=== PATIENT | female | born 1980 | race African-American/Black ===

== ENCOUNTER 2017-01-21 15:26 | Inpatient (IN) | payer BC ==
[~2017-01-21] VITALS: Ht 170.2 cm; Wt 95.5 kg
[2017-01-21] MEDS ORDERED: PREN-93 PO (16:40)
[2017-01-21 16:41] VITALS: Ht 170.2 cm; Wt 95.5 kg
[2017-01-21 16:43] VITALS: BP 128/75; PULSE 113; RESP 18
[2017-01-21 16:51] LABS: ADD SCAN DIFF NO
[2017-01-21 16:52] LABS: BASOPHILS % 0.1 % (0.0-2.0); EOSINOPHILS % 0.3 % (0.0-7.0); HEMATOCRIT 33.2 % (37.0-47.0); HEMOGLOBIN 11.1 g/dl (12.0-16.0); LYMPHOCYTES # 1.7 10^3/ul (0.8-2.9); LYMPHOCYTES % 24.3 % (15.0-51.0); MEAN CORPUSCULAR HEMOGLOBIN 29.1 pg (29.0-33.0); MEAN CORPUSCULAR HGB CONC 33.4 g/dl (32.0-37.0); MEAN CORPUSCULAR VOLUME 86.9 fl (82.0-101.0); MEAN PLATELET VOLUME 12.2 fl (7.4-10.4); MONOCYTE # 0.6 10^3/ul (0.3-0.9); NEUTROPHIL # 4.6 10^3/ul (1.6-7.5); NEUTROPHILS % 65.6 % (39.0-77.0); PLATELET COUNT 164 10^3/UL (140-415); RED BLOOD COUNT 3.82 10^6/ul (4.20-5.40); RED CELL DISTRIBUTION WIDTH 14.1 % (11.5-14.5)
[2017-01-21 16:57] LABS: INR 0.88; PARTIAL THROMBOPLASTIN TIME 23.6 Sec (25.0-35.0); PROTIME 11.9 Sec (12.2-14.2); PT RATIO 0.9
[2017-01-21] MEDS ORDERED: LACTATED RINGER'S 1,000 ML IV SCH (16:59)
[2017-01-21] MEDS ORDERED: OXYTOCIN 30 UNITS/LR 500 ML IV PRN ×2 (17:00)
[2017-01-21] MEDS ORDERED: CEFAZOLIN 2 GM/50 ML (PMX) 50 ML IV SCH (17:00)
[2017-01-21] MEDS ORDERED: METHYLERGONOVINE 0.2 MG INJ IM PRN ×2 (17:00)
[2017-01-21] MEDS ORDERED: OXYTOCIN 30 UNITS/LR 500 ML IV SCH (17:00)
[2017-01-21] MEDS ORDERED: CARBOPROST 250 MCG INJ IM PRN ×2 (17:00)
[2017-01-21] MEDS ORDERED: MISOPROSTOL 200 MCG TAB PR PRN ×2 (17:00)
[2017-01-21] MEDS ORDERED: morphine SULFATE/PF (10 MG/10 ML) INJ ONE (20:15)
[2017-01-21] MEDS ORDERED: ONDANSETRON 4 MG INJ ONE (20:15)
[2017-01-21] MEDS ORDERED: OXYTOCIN 10 UNIT INJ ONE ×2 (20:15→21:33)
[2017-01-21] MEDS ORDERED: PHENYLephrine (100 MCG/ML) 5ML SYG ONE ×2 (20:15→21:04)
--- NOTE | 2017-01-21 21:37 | PREOPHP ---
DATE OF ADMISSION: 01/21/2017 HISTORY OF PRESENT ILLNESS: A 36-year-old female, 3, para 2, estimated date of delivery 09/2016, at 39 weeks' gestation is admitted for repeat section. PAST MEDICAL HISTORY: Unremarkable. PAST SURGICAL HISTORY: section. ALLERGIES: NO KNOWN ALLERGIES. FAMILY HISTORY: Noncontributory. PHYSICAL EXAMINATION: VITAL SIGNS: The patient is afebrile. Vital signs stable. HEAD, NECK, AND CHEST: Within normal limits. ABDOMEN: Soft, nontender, and gravid. EXTREMITIES: Within normal limits. NEUROLOGIC: Within normal limits. IMPRESSION: at 39 weeks with previous section. The patient does not desire tria l of labor after . PLAN: Delivery by repeat section. Risks, benefits, and alternatives of the procedure were explained to the patient. The patient said she understood and gave informed consent for the proced ure. Dictated By: JACQUELIN CASTILLO/DHARMESH Conf#: [id number] DID#: [id number]
[2017-01-21] MEDS ORDERED: KETOROLAC 30 MG INJ IV PRN (22:30)
[2017-01-21] MEDS ORDERED: NALOXONE (0.4 MG/ML) INJ IV PRN (22:30)
[2017-01-21] MEDS ORDERED: morphine 2 MG INJ IV PRN (22:30)
[2017-01-21] MEDS ORDERED: ONDANSETRON 4 MG INJ IV PRN (22:30)
[2017-01-22] VITALS (7 sets, daily range): BP systolic 112–120; BP diastolic 55–72; PULSE 72–89; RESP 18–20
[2017-01-22] MEDS: OXYTOCIN 30 UNITS/LR 500 ML IV SCH ×2 (00:31→02:00)
[2017-01-22] MEDS: LACTATED RINGER'S 1,000 ML IV SCH ×3 (00:31→14:09)
[2017-01-22] MEDS ORDERED: OXYTOCIN 30 UNITS/LR 500 ML IV PRN (01:00)
[2017-01-22] MEDS ORDERED: MISOPROSTOL 200 MCG TAB PR PRN (01:00)
[2017-01-22] MEDS ORDERED: CARBOPROST 250 MCG INJ IM PRN (01:00)
[2017-01-22] MEDS ORDERED: LANOLIN 7 GM TUBE TOP PRN (01:00)
[2017-01-22] MEDS ORDERED: OXYCODONE/ACETAMINOPHEN (5/325) TAB PO PRN ×2 (01:00)
[2017-01-22] MEDS ORDERED: METHYLERGONOVINE 0.2 MG INJ IM PRN (01:00)
[2017-01-22] MEDS: DIPHENHYDRAMINE 50 MG INJ IV PRN ×2 (01:10→15:41)
[2017-01-22] MEDS: IBUPROFEN 800 MG TAB PO SCH ×3 (06:00→22:00)
[2017-01-22 07:45] LABS: ADD SCAN DIFF NO
[2017-01-22 07:54] LABS: BASOPHILS % 0.2 % (0.0-2.0); EOSINOPHILS % 0.1 % (0.0-7.0); HEMATOCRIT 30.6 % (37.0-47.0); HEMOGLOBIN 10.1 g/dl (12.0-16.0); LYMPHOCYTES # 1.3 10^3/ul (0.8-2.9); LYMPHOCYTES % 14.1 % (15.0-51.0); MEAN CORPUSCULAR HEMOGLOBIN 28.4 pg (29.0-33.0); MEAN PLATELET VOLUME 12.4 fl (7.4-10.4); MONOCYTE # 0.8 10^3/ul (0.3-0.9); MONOCYTES % 8.3 % (0.0-11.0); NEUTROPHILS % 76.9 % (39.0-77.0); PLATELET COUNT 158 10^3/UL (140-415); RED BLOOD COUNT 3.56 10^6/ul (4.20-5.40); RED CELL DISTRIBUTION WIDTH 13.8 % (11.5-14.5); WHITE BLOOD COUNT 9.2 10^3/ul (4.8-10.8)
[2017-01-22] MEDS: SENNA/DOCUSATE NA (8.6MG/50MG) TAB PO SCH ×2 (09:41→20:53)
--- NOTE | 2017-01-22 12:18 | QN ---
Documentation Comment No complaint Afebrile VSS Abdomen soft ND POD #1 Stable Ambulate Advance diet. JACQUELIN BURROWS MD Jan 22, 2017 12:17
[2017-01-22] MEDS ORDERED: IBUPROFEN 800 MG TAB PO SCH (22:00)
[2017-01-23] MEDS: LACTATED RINGER'S 1,000 ML IV SCH ×3 (00:31→16:31)
[2017-01-23 04:35] VITALS: BP 116/68; PULSE 78; RESP 18
[2017-01-23] MEDS: IBUPROFEN 800 MG TAB PO SCH ×3 (05:47→21:26)
[2017-01-23 07:50] VITALS: BP 121/74; PULSE 82; RESP 20
[2017-01-23] MEDS: SENNA/DOCUSATE NA (8.6MG/50MG) TAB PO SCH ×2 (09:24→20:33)
[2017-01-23 16:21] VITALS: BP 134/81; PULSE 88; RESP 18
[2017-01-23 19:35] VITALS: BP 125/72; PULSE 85; RESP 20
--- NOTE | 2017-01-23 21:28 | QN ---
Documentation Comment No complaint Afebrile VSS Abdomen soft ND Stable Continue with present care. JACQUELIN BURROWS MD Jan 23, 2017 21:28
--- NOTE | 2017-01-23 22:00 | OPR ---
Date/Time of Note Date/Time of Note DATE: 01/23/17 TIME: 21:55 Operative Report Free Text/Dictation Date of Operation January 21, 2017 Preoperative Diagnosis Term with Previous Postoperative Diagnosis Same Operation/Procedure Performed Repeat Low Transverse Anesthesia: spinal, epidural Estimated Blood Loss: other (600 ml) Complications: None JACQUELIN BURROWS MD Jan 23, 2017 22:00
[2017-01-24 03:50] VITALS: BP 117/70; PULSE 98; RESP 18
[2017-01-24] MEDS: IBUPROFEN 800 MG TAB PO SCH ×2 (05:34→13:21)
[2017-01-24 08:00] VITALS: BP 134/78; PULSE 77; RESP 20
[2017-01-24] MEDS ORDERED: DIPHTH/TET/ACEL PERTUSS (ADULT) 0.5 ML VIAL IM* ONE (09:00)
[2017-01-24] MEDS: SENNA/DOCUSATE NA (8.6MG/50MG) TAB PO SCH (09:29)
--- NOTE | 2017-01-24 13:08 | DS ---
Date/Time of Note Date/Time of Note DATE: 01/24/17 TIME: 13:07 Obstetrical Discharge Record Final Diagnosis Final Diagnosis: Term delivered Section Section: Repeat Condition on Discharge Physical Assessment Voiding: Yes Bowel Movement: Yes Breast: Soft, non-tender Fundus: Firm Abdomen and Incision: Abdomen Soft Incision clean and intact Calf Tenderness: No Patient Condition: Stable JACQUELIN BURROWS MD Jan 24, 2017 13:08
[2017-01-24 16:00] VITALS: BP 121/86; PULSE 77; RESP 20
== END 2017-01-24 18:54 | disposition home or self-care (01) | DRG 766 ==
LOC: L-D 15:26 → PP1 01-22 00:17
PROVIDERS: ADMIT Obstetrics & Gynecology; ATTEND Obstetrics & Gynecology
PROC: 10D00Z1 Extraction of Products of Conception, Low, Open Approach (ICD-10-PCS; principal; 2017-01-21 17:00)
DX: O34.211 Maternal care for low transverse scar from previous cesarean delivery (principal); E66.9 Obesity, unspecified; O99.214 Obesity complicating childbirth; Z3A.39 39 weeks gestation of pregnancy; Z37.0 Single live birth; Z68.33 Body mass index [BMI] 33.0-33.9, adult
CPT/HCPCS: 85025; 85610; 85730; 86592; 86850; 86900; 86901; 90715; 94760; 99464; J0690; J1200; J1885; J2274; J2370; J2405; J2590; J7120

== ENCOUNTER 2019-01-10 16:19 | Outpatient (CLI) | payer BC ==
[~2019-01-10] VITALS: Ht 170.2 cm; Wt 98.5 kg
[~2019-01-10 16:19] MED LIST: PREN-93 PO
[2019-01-10 16:43] VITALS: Ht 170.2 cm; Wt 98.5 kg
[2019-01-10 16:46] VITALS: BP 112/68; PULSE 114; RESP 18
--- NOTE | 2019-01-10 19:40 | TRIAGE ---
OB Triage Datetime Report Generated by CPN: 01/10/2019 19:40 Datetime: 01/10/2019 19:02 Labor Evaluation Frequency: X1 Monitor Mode: External Duration (sec)2399: 80 Pattern: Normal: <= 5 Contractions in 10 Minutes Resting Tone [place]: Relaxed Heart Rate FHR Baseline Rate: 135 Monitor Mode: External US Variability: Moderate 6-25 bpm Accelerations: 15X15 Decelerations: None Category: Category I Comments: STRIP REVIEWED FROM [id number] Datetime: 01/10/2019 17:39 Headache: Denies Labor Evaluation Frequency: IRREG Monitor Mode: External Quality: Mild Pattern: Normal: <= 5 Contractions in 10 Minutes Resting Tone [place]: Relaxed Heart Rate FHR Baseline Rate: 135 Monitor Mode: External US FHR Baseline Changes: No Baseline Change Variability: Moderate 6-25 bpm Accelerations: 15X15 Decelerations: None Category: Category I Pain Assessment Pain Scale: 0 Pain Presence: None/Denies Pain Type: N/A Pain Location: Abdomen Pain Goal: 0 Datetime: 01/10/2019 17:10 Maternal Assessment Level of Consciousness: Keenly Alert, Responsive DTR's/Clonus: DTRs 2+ Headache: Denies Blurred Vision: No Nausea/Vomiting: Denies RUQ Epigastric Pain: Denies Facial Edema: None Labor Evaluation Frequency: irreg Monitor Mode: External Duration (sec)2399: 60-50 Quality: Mild Pattern: Normal: <= 5 Contractions in 10 Minutes Resting Tone [place]: Relaxed Heart Rate FHR Baseline Rate: 135 Monitor Mode: External US FHR Baseline Changes: No Baseline Change Variability: Moderate 6-25 bpm Accelerations: 15X15 Decelerations: None Category: Category I Pain Assessment Pain Scale: 0 Pain Presence: Intermittent Pain Type: Cramping Pain Location: Abdomen Pain Goal: 0 Vaginal Exam Membrane Status: Intact Datetime: 01/10/2019 16:35 Time of Arrival: 01/10/2019 16:10 EGA: 36.1 Arrived By: Ambulatory Arrived From: Home Chief Complaint: vag bleeding at 0900 and 1200 Movement: Present Contractions: Irregular Patient Complaints: Other Time Provider Notified: 01/10/2019 16:50 Provider Notified: delshad Initial Plan: efm,call dr adeline Datetime: 01/10/2019 16:34 Maternal Assessment Level of Consciousness: Keenly Alert, Responsive DTR's/Clonus: DTRs 2+ Headache: Denies Blurred Vision: No Nausea/Vomiting: Denies RUQ Epigastric Pain: Denies Facial Edema: None Monitor Mode: External Quality: Mild Pattern: Normal: <= 5 Contractions in 10 Minutes Resting Tone [place]: Relaxed Heart Rate FHR Baseline Rate: 140 Monitor Mode: External US FHR Baseline Changes: No Baseline Change Variability: Moderate 6-25 bpm Accelerations: 15X15 Decelerations: None Category: Category I Pain Assessment Pain Scale: 0 Pain Presence: None/Denies Pain Type: N/A Pain Location: Abdomen Pain Goal: 0 Vaginal Exam Membrane Status: Intact Datetime: 01/10/2019 16:22 Maternal Assessment Level of Consciousness: Keenly Alert, Responsive DTR's/Clonus: DTRs 2+; No Clonus Headache: Denies Blurred Vision: No Respiratory Effort: Unlabored; Regular Rhythm; Equal Expansion Breath Sounds, Left: Clear and Equal Breath Sounds, Right: Clear and Equal Nausea/Vomiting: Denies RUQ Epigastric Pain: Denies Facial Edema: None Temperature Route: Axillary Fall Risk Assessment History of Falling: (0) No Secondary Diagnosis: (0) No Ambulatory Aid: (0) Bedrest/Nurse Assist IV Therapy: (0) No Gait: (0) Normal/Bedrest/Immobile Mental Status: (0) Oriented to Own Ability Fall Score: 0 Fall Risk Score Definition: No Risk: No action required
--- NOTE | 2019-01-11 16:19 | PN ---
Triage Information Date/Time Reason for visit: Vag spotting / bleeding Weeks of Gestation 36 weeks /Para Diabetes: none Hypertention: none Objective Vital Signs Date Temp Pulse Resp B/P (MAP) Pulse Ox O2 O2 Flow FiO2 Time Delivery Rate 01/10/19 97.7 114 18 112/68 Room Air 16:46 (83) Heart Rate: 120's Heart Rate Comments Reactive Contractions: None Results/Medications Result Diagram: 01/10/19 1726 Results 24 hrs Laboratory Tests Test 01/10/19 17:00 01/10/19 17:26 Urine Color STRAW Urine Clarity CLEAR Urine pH 6.0 Urine Specific [place] 1.006 Urine Ketones NEGATIVE Urine Nitrite NEGATIVE Urine Bilirubin NEGATIVE Urine Urobilinogen NEGATIVE Urine Leukocyte Esterase NEGATIVE Urine Hemoglobin NEGATIVE Urine Glucose NEGATIVE Urine Total Protein NEGATIVE White Blood Count 7.1 # Red Blood Count 3.58 L Hemoglobin 10.0 L Hematocrit 30.9 L Mean Corpuscular Volume 86.3 Mean Corpuscular Hemoglobin 27.9 L Mean Corpuscular Hemoglobin Concent 32.4 Red Cell Distribution Width 13.7 Platelet Count 157 Mean Platelet Volume 12.3 H Immature Granulocytes % 0.600 H Neutrophils % 66.6 Lymphocytes % 22.0 Monocytes % 10.1 Eosinophils % 0.4 Basophils % 0.3 Nucleated Red Blood Cells % 0.0 Immature Granulocytes # 0.040 H Neutrophils # 4.7 Lymphocytes # 1.6 Monocytes # 0.7 Eosinophils # 0.0 Basophils # 0.0 Nucleated Red Blood Cells # 0.0 Imaging Results OB ultrasound placenta normal Disposition: Discharge Assessment/Plan Follow up ion clinic on 01/15/2019 JACQUELIN BURROWS MD Jan 11, 2019 16:19
== END 2019-01-10 19:35 | disposition home or self-care (01) ==
LOC: OBT 16:19 → L-D 16:19 → OBT 19:35
PROVIDERS: ATTEND Obstetrics & Gynecology
DX: O26.853 Spotting complicating pregnancy, third trimester (principal); O09.523 Supervision of elderly multigravida, third trimester; Z3A.36 36 weeks gestation of pregnancy
CPT/HCPCS: 76815; 76818; 81003; 85025; 86850; 86870; 86900; 86901; Z7500; G0463

== ENCOUNTER 2019-01-15 16:15 | Outpatient (CLI) | payer BC ==
[~2019-01-15] VITALS: Ht 170.2 cm; Wt 99.2 kg
[2019-01-15 17:02] VITALS: Ht 170.2 cm; Wt 99.2 kg
[2019-01-15 17:03] VITALS: BP 124/71; PULSE 100; RESP 18
--- NOTE | 2019-01-15 20:08 | PN ---
Triage Information Date/Time Reason for visit: h/o marginal cord insertion Weeks of Gestation 37 weeks /Para Diabetes: none Hypertention: none Objective Vital Signs Date Temp Pulse Resp B/P (MAP) Pulse Ox O2 O2 Flow FiO2 Time Delivery Rate 01/15/19 97.9 100 18 124/71 Room Air 17:03 (88) Heart Rate: 120's Heart Rate Comments Reactive Results/Medications Imaging Results BP 03/05 Disposition: Discharge JACQUELIN BURROWS MD Jan 15, 2019 20:08
--- NOTE | 2019-01-15 20:32 | TRIAGE ---
OB Triage Datetime Report Generated by CPN: 01/15/2019 20:32 Datetime: 01/15/2019 19:21 Pain Assessment Pain Scale: 0 Pain Presence: None/Denies Pain Type: N/A Datetime: 01/15/2019 19:14 Monitor Mode: External Monitor Mode: External US Datetime: 01/15/2019 19:00 Labor Evaluation Frequency: X5 Monitor Mode: External Duration (sec)2399: 50-100 Quality: Mild Pattern: Normal: <= 5 Contractions in 10 Minutes Resting Tone [place]: Relaxed Heart Rate FHR Baseline Rate: 140 Monitor Mode: External US Variability: Moderate 6-25 bpm Accelerations: 15X15 Decelerations: None Category: Category I Datetime: 01/15/2019 18:00 Labor Evaluation Frequency: x4 Monitor Mode: External Duration (sec)2399: 40-100 Quality: Mild Pattern: Normal: <= 5 Contractions in 10 Minutes Resting Tone [place]: Relaxed Heart Rate FHR Baseline Rate: 140 Monitor Mode: External US Variability: Moderate 6-25 bpm Accelerations: 15X15 Decelerations: None Category: Category I Pain Assessment Pain Scale: 0 Pain Presence: None/Denies Pain Type: N/A Datetime: 01/15/2019 17:05 Comments: u/s tech at bedside Datetime: 01/15/2019 16:59 Assessment Type: Triage Maternal Assessment Level of Consciousness: Keenly Alert, Responsive DTR's/Clonus: DTRs 2+; No Clonus Headache: Denies Blurred Vision: No Respiratory Effort: Unlabored; Regular Rhythm; Equal Expansion Breath Sounds, Left: Clear and Equal Breath Sounds, Right: Clear and Equal Nausea/Vomiting: Denies RUQ Epigastric Pain: Denies Lower Extremities Edema: None Degree: None Upper Extremities Edema: None Degree: None Facial Edema: None Fall Risk Assessment History of Falling: (0) No Secondary Diagnosis: (0) No Ambulatory Aid: (0) Bedrest/Nurse Assist IV Therapy: (0) No Gait: (0) Normal/Bedrest/Immobile Mental Status: (0) Oriented to Own Ability Fall Score: 0 Fall Risk Score Definition: No Risk: No action required Datetime: 01/15/2019 16:58 Time of Arrival: 01/15/2019 16:13 EGA: 36.6 Arrived By: Ambulatory Arrived From: Dr. Raza Chief Complaint: sent in from clinic for bpp, marginal cord insertion Movement: Present Contractions: Denies/Absent Rupture of Membranes: Denies Vaginal Bleeding: None Vaginal Discharge: Denies Recent Sexual Intercouse: Denies Abdominal Trauma: Not Applicable Patient Complaints: None Time Provider Notified: 01/15/2019 18:20 Provider Notified: DELSHAD Initial Plan: bpp/nst as ordered Datetime: 01/15/2019 16:57 Pain Assessment Pain Scale: 0 Pain Presence: None/Denies Pain Type: N/A Datetime: 01/10/2019 16:35 EGA: 36.1 Datetime: 01/10/2019 16:22 Fall Score: 0 Fall Risk Score Definition: No Risk: No action required
--- NOTE | 2019-01-16 05:01 | TRIAGE ---
OB Triage Datetime Report Generated by CPN: 01/16/2019 05:01 Datetime: 01/15/2019 20:00 Frequency: IRREGULAR Monitor Mode: External Duration (sec)2399: 90-140 Quality: Mild Pattern: Normal: <= 5 Contractions in 10 Minutes Resting Tone [place]: Relaxed FHR Baseline Rate: 150 Monitor Mode: External US Variability: Minimal - Undetectable to <=5 bpm Accelerations: None Decelerations: None Category: Category I Datetime: 01/15/2019 16:59 Fall Score: 0 Fall Risk Score Definition: No Risk: No action required Datetime: 01/15/2019 16:58 EGA: 37.0 Datetime: 01/10/2019 16:35 EGA: 36.2 Datetime: 01/10/2019 16:22 Fall Score: 0 Fall Risk Score Definition: No Risk: No action required
== END 2019-01-15 20:21 | disposition home or self-care (01) ==
LOC: OBT 16:15 → L-D 16:16 → OBT 20:21
PROVIDERS: ATTEND Obstetrics & Gynecology
DX: O43.123 Velamentous insertion of umbilical cord, third trimester (principal); O09.523 Supervision of elderly multigravida, third trimester; Z3A.37 37 weeks gestation of pregnancy
CPT/HCPCS: 76818; Z7500; G0463

== ENCOUNTER 2019-01-19 18:59 | Outpatient (CLI) | payer BC ==
[~2019-01-19] VITALS: Ht 170.2 cm; Wt 99.5 kg
[2019-01-19 19:41] VITALS: BP 121/78; PULSE 108; RESP 18
[2019-01-19] MEDS ORDERED: FERR134T PO (19:46)
--- NOTE | 2019-01-19 19:54 | PN ---
Triage Information Date/Time Reason for visit: marginal insertion of cord Weeks of Gestation 37 weeks /Para Diabetes: none Hypertention: none Objective Vital Signs Date Temp Pulse Resp B/P (MAP) Pulse Ox O2 O2 Flow FiO2 Time Delivery Rate 01/19/19 98.7 108 18 121/78 Room Air 19:41 (92) Heart Rate: 120's Heart Rate Comments Reactive Contractions: None Assessment/Plan Will do BPP Consider d/c home if BPP normal JACQUELIN BURROWS MD Jan 19, 2019 19:54
--- NOTE | 2019-01-20 02:51 | TRIAGE ---
OB Triage Datetime Report Generated by CPN: 01/20/2019 02:51 Datetime: 01/19/2019 19:40 Time of Arrival: 01/19/2019 18:53 EGA: 37.4 Arrived By: Ambulatory Arrived From: Home Chief Complaint: w/ orders for follow up NST/BPP d/t marginal cord insertion Movement: Present Contractions: Denies/Absent Rupture of Membranes: Denies Vaginal Bleeding: None Vaginal Discharge: Denies Recent Sexual Intercouse: Denies Abdominal Trauma: Not Applicable Patient Complaints: None Time Provider Notified: 01/19/2019 19:30 Provider Notified: Dr Camacho Initial Plan: NST/BPP Datetime: 01/15/2019 16:59 Fall Risk Assessment Fall Score: 0 Fall Risk Score Definition: No Risk: No action required Datetime: 01/15/2019 16:58 EGA: 37.0 Datetime: 01/10/2019 16:35 EGA: 36.2 Datetime: 01/10/2019 16:22 Fall Risk Assessment Fall Score: 0 Fall Risk Score Definition: No Risk: No action required
== END 2019-01-19 21:40 | disposition home or self-care (01) ==
LOC: OBT 18:59 → L-D 19:00 → OBT 21:40
PROVIDERS: ATTEND Obstetrics & Gynecology
DX: O43.123 Velamentous insertion of umbilical cord, third trimester (principal); Z3A.37 37 weeks gestation of pregnancy
CPT/HCPCS: 76818; Z7500; G0463

== ENCOUNTER 2019-01-22 19:41 | Outpatient (CLI) | payer BC ==
[~2019-01-22] VITALS: Ht 170.2 cm; Wt 99.9 kg
[~2019-01-22 19:41] MED LIST changes: +FERR134T PO
[2019-01-22 20:17] VITALS: BP 127/75; PULSE 90; RESP 18; Ht 170.2 cm; Wt 99.9 kg
--- NOTE | 2019-01-22 22:48 | PN ---
Triage Information Date/Time Reason for visit: Patient with marginal cord insertion here for NST and BPP Weeks of Gestation Patient is a 38-year-old 4 para 3 at 38 weeks of gestation with estimated delivery February 05, 2019 Patient with marginal cord insertion here for NST and BPP Patient reports positive movement, denies vaginal bleeding and leaking fluid, denies uterine contractions Past obstetrical history significant for prior x2 /Para 4 para 3 Diabetes: none Hypertention: none Objective Vital Signs Date Temp Pulse Resp B/P (MAP) Pulse Ox O2 O2 Flow FiO2 Time Delivery Rate 01/22/19 98.6 90 18 127/75 Room Air 20:17 (92) Heart Rate: 140's Heart Rate Comments heart rate tracing category 1 Contractions: None Results/Medications Imaging Results PROCEDURE: OB ultrasound for biophysical profile. CLINICAL INDICATION: Contractions. TECHNIQUE: Multiple sonographic images of the pelvis were obtained using transabdominal approach. COMPARISON: Biophysical profile dated 01/19/2019. FINDINGS: breathing movement = 2/2 tone = 2/2 motion = 2/2 RAYMOND = 9.9 cm Single living intrauterine gestation with heart rate of 150 beats per minute. Anterior grade 1 placenta. Cephalic presentation. IMPRESSION: 1. Single living intrauterine gestation with cephalic presentation. 2. Biophysical profile = 8/8. 3. RAYMOND = 9.9 cm, previously 15.4 cm. RPTAT:HAJM Physician Xochilt Date Time Electronically viewed and signed by Brigitte Schmid Physician on 01/22/2019 21:23 RM/ CC: JACQUELIN BURROWS MD [phone] Disposition: Discharge Assessment/Plan kick count instructions were given Labor precautions were given Patient instructed to follow-up with [facility] in 1 to 2 days Patient instructed to return in 48 hours for repeat NST and BPP Patient will be scheduled for repeat by ROSA ISELA Sam MD Jan 22, 2019 22:48
--- NOTE | 2019-01-22 22:59 | TRIAGE ---
OB Triage Datetime Report Generated by CPN: 01/22/2019 22:59 Datetime: 01/22/2019 21:40 Stage of : OB Triage Datetime: 01/22/2019 20:45 Stage of : OB Triage Datetime: 01/22/2019 20:40 Stage of : OB Triage Datetime: 01/22/2019 20:30 Stage of : OB Triage Labor Evaluation Frequency: 6-10 Monitor Mode: External Duration (sec)2399: 40-60 Pattern: Normal: <= 5 Contractions in 10 Minutes Resting Tone [place]: Relaxed Contraction Comments: Patient denies feeling contractions. Heart Rate FHR Baseline Rate: 140 Monitor Mode: External US Variability: Moderate 6-25 bpm Accelerations: 15X15 Decelerations: None Category: Category I Pain Assessment Pain Scale: 0 Pain Presence: None/Denies Pain Type: N/A Pain Relief Measures: Comfort Measures Datetime: 01/22/2019 20:11 Stage of : OB Triage Assessment Type: Triage Maternal Assessment Level of Consciousness: Keenly Alert, Responsive DTR's/Clonus: DTRs 2+; No Clonus Headache: Denies Blurred Vision: No Respiratory Effort: Unlabored; Regular Rhythm; Equal Expansion Breath Sounds, Left: Clear and Equal Breath Sounds, Right: Clear and Equal Nausea/Vomiting: Denies RUQ Epigastric Pain: Denies Lower Extremities Edema: None Degree: None Upper Extremities Edema: None Degree: None Facial Edema: None Temperature Route: Oral Fall Risk Assessment History of Falling: (0) No Secondary Diagnosis: (0) No Ambulatory Aid: (0) Bedrest/Nurse Assist IV Therapy: (0) No Gait: (0) Normal/Bedrest/Immobile Mental Status: (0) Oriented to Own Ability Fall Score: 0 Fall Risk Score Definition: No Risk: No action required Monitor Mode: External Monitor Mode: External US Pain Assessment Pain Scale: 0 Pain Presence: None/Denies Pain Type: N/A Datetime: 01/22/2019 20:10 Time of Arrival: 01/22/2019 19:33 EGA: 38.0 Arrived By: Ambulatory Arrived From: Office Chief Complaint: NST/BPP Movement: Present Contractions: Denies/Absent Rupture of Membranes: Denies Vaginal Discharge: Denies Recent Sexual Intercouse: Denies Abdominal Trauma: Not Applicable Patient Complaints: None Time Provider Notified: 01/22/2019 20:40 Provider Notified: Delshad Initial Plan: NST/BPP Datetime: 01/19/2019 21:22 Stage of : OB Triage Datetime: 01/19/2019 21:03 Heart Rate FHR Baseline Rate: 140 Monitor Mode: External US FHR Baseline Changes: No Baseline Change Variability: Moderate 6-25 bpm Accelerations: 15X15 Decelerations: None Category: Category I Datetime: 01/19/2019 20:52 Stage of : OB Triage Monitor Mode: External Quality: Mild Pattern: Normal: <= 5 Contractions in 10 Minutes Resting Tone [place]: Relaxed Heart Rate FHR Baseline Rate: 145 Monitor Mode: External US FHR Baseline Changes: No Baseline Change Variability: Moderate 6-25 bpm Accelerations: 15X15 Decelerations: None Category: Category I Datetime: 01/19/2019 20:18 Monitor Mode: External US Datetime: 01/19/2019 19:40 EGA: 37.4 Datetime: 01/19/2019 19:30 Stage of : OB Triage Datetime: 01/19/2019 19:24 Stage of : OB Triage Maternal Assessment Level of Consciousness: Keenly Alert, Responsive Headache: Denies Blurred Vision: No Respiratory Effort: Unlabored Nausea/Vomiting: Denies RUQ Epigastric Pain: Denies Facial Edema: None Monitor Mode: External Resting Tone [place]: Relaxed Heart Rate FHR Baseline Rate: 150 Monitor Mode: External US Pain Assessment Pain Scale: 0 Pain Presence: None/Denies Pain Type: N/A Datetime: 01/15/2019 16:59 Fall Score: 0 Fall Risk Score Definition: No Risk: No action required Datetime: 01/15/2019 16:58 EGA: 37.0 Datetime: 01/10/2019 16:35 EGA: 36.2 Datetime: 01/10/2019 16:22 Fall Score: 0 Fall Risk Score Definition: No Risk: No action required
== END 2019-01-22 21:50 | disposition home or self-care (01) ==
LOC: OBT 19:41 → L-D 19:42 → OBT 21:50
PROVIDERS: ATTEND Obstetrics & Gynecology
DX: O43.123 Velamentous insertion of umbilical cord, third trimester (principal); Z3A.38 38 weeks gestation of pregnancy
CPT/HCPCS: 76818; Z7500; G0463

== ENCOUNTER 2019-01-26 19:30 | Outpatient (CLI) | payer BC ==
[~2019-01-26] VITALS: Ht 170.2 cm; Wt 100.6 kg
[2019-01-26 19:51] VITALS: Ht 170.2 cm; Wt 100.6 kg
--- NOTE | 2019-01-26 20:02 | PN ---
Triage Information Date/Time Reason for visit: Marginal insertion of cord Weeks of Gestation 38 weeks /Para Diabetes: none Hypertention: none Objective Heart Rate: 120's Heart Rate Comments Reactive Contractions: None Disposition: Discharge Assessment/Plan BPP to be done D/C home if BPP normal JACQUELIN BURROWS MD Jan 26, 2019 20:02
--- NOTE | 2019-01-26 22:26 | TRIAGE ---
OB Triage Datetime Report Generated by CPN: 01/26/2019 22:26 Datetime: 01/26/2019 21:16 Stage of : OB Triage Labor Evaluation Frequency: X2/HR Monitor Mode: External Duration (sec)2399: 30-40 Quality: Mild Pattern: Normal: <= 5 Contractions in 10 Minutes Resting Tone [place]: Relaxed Heart Rate FHR Baseline Rate: 145 Monitor Mode: External US Variability: Moderate 6-25 bpm Accelerations: 15X15 Decelerations: None Pain Assessment Pain Presence: None/Denies Datetime: 01/26/2019 20:15 Stage of : OB Triage Temperature Route: Oral Labor Evaluation Frequency: X2/30 MIN Monitor Mode: External Duration (sec)2399: 30-40 Quality: Mild Pattern: Normal: <= 5 Contractions in 10 Minutes Resting Tone [place]: Relaxed Heart Rate FHR Baseline Rate: 150 Monitor Mode: External US Variability: Moderate 6-25 bpm Accelerations: 10X10 Decelerations: None Pain Assessment Pain Presence: None/Denies Datetime: 01/26/2019 19:53 Time of Arrival: 01/26/2019 19:28 EGA: 38.4 Chief Complaint: NST/BPP Movement: Present Contractions: Denies/Absent Rupture of Membranes: Denies Vaginal Discharge: Denies Time Provider Notified: 01/26/2019 19:42 Provider Notified: DELSHAD Initial Plan: NST/BPP Datetime: 01/26/2019 19:47 Assessment Type: Triage Maternal Assessment Level of Consciousness: Keenly Alert, Responsive DTR's/Clonus: DTRs 2+; No Clonus Headache: Denies Blurred Vision: No Respiratory Effort: Unlabored; Regular Rhythm; Equal Expansion Breath Sounds, Left: Clear and Equal Breath Sounds, Right: Clear and Equal Nausea/Vomiting: Denies RUQ Epigastric Pain: Denies Lower Extremities Edema: None Upper Extremities Edema: None Facial Edema: None Fall Risk Assessment History of Falling: (0) No Secondary Diagnosis: (0) No Ambulatory Aid: (0) Bedrest/Nurse Assist IV Therapy: (0) No Gait: (0) Normal/Bedrest/Immobile Mental Status: (0) Oriented to Own Ability Fall Score: 0 Fall Risk Score Definition: No Risk: No action required Datetime: 01/22/2019 20:11 Fall Score: 0 Fall Risk Score Definition: No Risk: No action required Datetime: 01/22/2019 20:10 EGA: 38.0 Datetime: 01/19/2019 19:40 EGA: 37.4 Datetime: 01/15/2019 16:59 Fall Score: 0 Fall Risk Score Definition: No Risk: No action required Datetime: 01/15/2019 16:58 EGA: 37.0 Datetime: 01/10/2019 16:35 EGA: 36.2 Datetime: 01/10/2019 16:22 Fall Score: 0 Fall Risk Score Definition: No Risk: No action required
== END 2019-01-26 21:12 | disposition home or self-care (01) ==
LOC: L-D 19:30 → OBT 19:30
PROVIDERS: ATTEND Obstetrics & Gynecology
DX: O43.123 Velamentous insertion of umbilical cord, third trimester (principal); O09.523 Supervision of elderly multigravida, third trimester; Z3A.38 38 weeks gestation of pregnancy
CPT/HCPCS: 76818; Z7500; G0463

== ENCOUNTER 2019-01-29 02:30 | Inpatient (IN) | payer BC ==
[~2019-01-29] VITALS: Ht 170.2 cm; Wt 99.6 kg
[2019-01-29 02:30] VITALS: Ht 170.2 cm; Wt 99.6 kg
[2019-01-29 02:52] VITALS: BP 127/85; PULSE 85; RESP 18
[2019-01-29] MEDS: LACTATED RINGER'S 1,000 ML IV SCH ×2 (03:10→04:25)
[2019-01-29] MEDS ORDERED: OXYTOCIN 30 UNITS/LR 500 ML IV PRN ×2 (04:00→17:00)
[2019-01-29] MEDS ORDERED: OXYTOCIN 30 UNITS/LR 500 ML IV SCH ×2 (04:00→16:34)
[2019-01-29] MEDS ORDERED: METHYLERGONOVINE 0.2 MG INJ IM PRN ×2 (04:00→17:00)
[2019-01-29] MEDS ORDERED: CEFAZOLIN 2 GM/50 ML (PMX) 50 ML IVPB SCH (04:00)
[2019-01-29] MEDS ORDERED: MISOPROSTOL 200 MCG TAB PR PRN ×2 (04:00→17:00)
[2019-01-29] MEDS ORDERED: ACETAMINOPHEN 325 MG TAB PO ONE (04:00)
[2019-01-29] MEDS ORDERED: CARBOPROST 250 MCG INJ IM PRN ×2 (04:00→17:00)
--- NOTE | 2019-01-29 04:04 | TRIAGE ---
OB Triage Datetime Report Generated by CPN: 01/29/2019 04:04 Datetime: 01/29/2019 03:30 Labor Evaluation Frequency: 2-9 Monitor Mode: External Duration (sec)2399: 50-90 Quality: Mild Pattern: Normal: <= 5 Contractions in 10 Minutes Resting Tone [place]: Relaxed Heart Rate FHR Baseline Rate: 130 Monitor Mode: External US Variability: Moderate 6-25 bpm Accelerations: 15X15 Decelerations: None Category: Category I Datetime: 01/29/2019 03:10 Vaginal Exam Dilatation (cms): 0.0 Effacement (%): 0 Station: -3 Exam By: nabeel beck RN Membrane Status: Intact Cervix, Consistency: Soft Datetime: 01/29/2019 03:03 Time of Arrival: 01/29/2019 02:30 EGA: 39.0 Arrived By: Wheelchair Arrived From: Home Chief Complaint: c/o UC's since 01/27/19 and headache since 01/27/19 with minimal relief with PO t ynenol. Movement: Present Contractions: Occasional Time Contractions Began: 01/27/2019 12:00 Contractions: 15 MINUTES APART Rupture of Membranes: Denies Vaginal Bleeding: None Vaginal Discharge: Denies Recent Sexual Intercouse: Denies Abdominal Trauma: Not Applicable Patient Complaints: Contractions; Back Pain; Headache; Epigastric Pain Additional Patient Complaints: Pt states her headache starts from her forehead and goes back _ "it feels like my head is going to fall off when I look down." pt is also c/o epigastric pain 3 times tod ay that went away with deep breaths. Time Provider Notified: 01/29/2019 03:20 Provider Notified: MARKOS Initial Plan: TORY IBARRA, CALL MD Datetime: 01/29/2019 02:52 Stage of : OB Triage Maternal Assessment Level of Consciousness: Keenly Alert, Responsive DTR's/Clonus: DTRs 1+; No Clonus Headache: Generalized; Frontal Blurred Vision: No Respiratory Effort: Unlabored; Regular Rhythm; Equal Expansion Breath Sounds, Left: Clear and Equal Breath Sounds, Right: Clear and Equal Nausea/Vomiting: Denies RUQ Epigastric Pain: Denies Lower Extremities Edema: None Degree: None Upper Extremities Edema: None Degree: None Facial Edema: None Fall Risk Assessment History of Falling: (0) No Secondary Diagnosis: (0) No Ambulatory Aid: (0) Bedrest/Nurse Assist IV Therapy: (0) No Gait: (0) Normal/Bedrest/Immobile Mental Status: (0) Oriented to Own Ability Fall Score: 0 Fall Risk Score Definition: No Risk: No action required Datetime: 01/29/2019 02:50 Stage of : OB Triage Monitor Mode: External Monitor Mode: External US Datetime: 01/26/2019 19:53 EGA: 38.4 Datetime: 01/26/2019 19:47 Fall Score: 0 Fall Risk Score Definition: No Risk: No action required Datetime: 01/22/2019 20:11 Fall Score: 0 Fall Risk Score Definition: No Risk: No action required Datetime: 01/22/2019 20:10 EGA: 38.0 Datetime: 01/19/2019 19:40 EGA: 37.4 Datetime: 01/15/2019 16:59 Fall Score: 0 Fall Risk Score Definition: No Risk: No action required Datetime: 01/15/2019 16:58 EGA: 37.0 Datetime: 01/10/2019 16:35 EGA: 36.2 Datetime: 01/10/2019 16:22 Fall Score: 0 Fall Risk Score Definition: No Risk: No action required
--- NOTE | 2019-01-29 10:48 | PREAC ---
Date/Time of Note Date/Time of Note DATE: 01/29/19 TIME: 10:46 Anesthesia Eval and Record Evaluation Time Pre-Procedure Interview DATE: 01/29/19 TIME: 10:46 Age 38 Sex female NPO: 8 hrs Preoperative diagnosis IUP Planned procedure Repeat Csection Past Medical History Past Medical History: Includes GI: Morbid obesity : : Surgery & Anesthesia Issues No known issue Meds Anticoagulation: No Beta Dario within 24 hr: No Reason Beta Dario not given: Pt. not on B-Daroi Reported Medications Ferrous Sulfate (Iron) 134 Mg Tablet, 134 MG PO DAILY, TAB 01/19/19 Vit No.124/Iron/FA ( Vitamin Tablet) 1 Each Tablet, 1 EACH PO, TAB 01/21/17 Current Medications Lactated Ringer's 1,000 ml @ 125 mls/hr Q8H IV Last administered on 01/29/19at 04:25; Admin Dose 125 MLS/HR; Start 01/29/19 at 03:38 Cefazolin Sodium/ Dextrose 50 ml @ 100 mls/hr ONCE IVPB ; Start 01/29/19 at 04:00 Oxytocin/Lactated Ringer's 500 ml @ 125 mls/hr POST IV ; Start 01/29/19 at 04:00 Oxytocin/Lactated Ringer's 500 ml @ 0 mls/hr ONCE PRN IV .VAGINAL BLEEDING; Sta rt 01/29/19 at 04:00 Methylergonovine Maleate (Methergine) 0.2 mg ONCE PRN IM .VAGINAL BLEEDING; Start 01/29/19 at 04:00 Carboprost Tromethamine (Hemabate) 250 mcg ONCE PRN IM .VAGINAL BLEEDING; Start 01/29/19 at 04:00 Misoprostol (Cytotec) 1,000 mcg ONCE PRN VA .VAGINAL BLEEDING; Start 01/29/19 at 04:00 Meds reviewed: Yes Allergies Coded Allergies: chloroquine (Unverified Allergy, Mild, 01/29/19) Allergies Reviewed: Yes Labs/Studies Labs Reviewed: Reviewed by anesthesiologist Result Diagram: 01/29/19 0415 01/29/19 0415 Laboratory Tests 01/29/19 04:15 Blood Bank Test 01/29/19 04:15 Antibody Screen NEGATIVE Blood Type B NEGATIVE Rh Immune Globulin Candidate NO test: Positive Pre-procedure Exam Last vitals Vital Signs Date Temp Pulse Resp B/P (MAP) Pulse Ox O2 O2 Flow FiO2 Time Delivery Rate 01/29/19 98.7 85 18 127/85 Room Air 02:52 (99) Airway: Adequate mouth opening, Adequate thyromental dist Mallampati: Mallampati II Teeth: Normal Lung: Normal Heart: Normal ASA Physical Status ASA physical status: 2 Emergency: None Planned Anesthetic Neuraxial: Spinal Planned Pain Management Sub-arachniod narcotics, Parenteral pain med Pre-operative Attestations Prior to commencing anesthesia and surgery, the patient was re-evaluated, there was verification of: *The patient's identity *The results of appropriate recent lab work and preoperative vital signs *The above evaluation not changing prior to induction *Anesthetic plan, risk benefits, alternative and complications discussed with patient/family; questions answered; patient/family understands, accepts and wishes to proceed. NORMA AMAYA MD Jan 29, 2019 10:48
--- NOTE | 2019-01-29 10:52 | HP ---
Date/Time of Note Date/Time of Note DATE: 01/29/19 TIME: 10:50 OB - History Hx of Present Chief Complaint: contractions Estimated Due Date: Feb 05, 2019 : 4 Para: 3 Spontaneous : 0 Therapeutic : 0 Care: Good Care Ultrasounds: Normal mid trimester US Obstetrical Complications: None Medical Complications: None Past Family/Social History * Past Medical, Surgical, Family and Obstetric Histories reviewed from chart. GBS Status: Negative OB Admission Exam Vital Signs Vital Signs Vital Signs Date Temp Pulse Resp B/P (MAP) Pulse Ox O2 O2 Flow FiO2 Time Delivery Rate 01/29/19 98.7 85 18 127/85 Room Air 02:52 (99) Physical Exam HEENT: WNL Heart: Rhythm Normal Lungs: Clear, Equal Abdomen: WNL Extremities: Normal Reflexes: Normal Cervical Dilatation: None Heart Rate: 120's Accelerations: Accelerations Present Decelerations: No Decelerations Varibility: Moderate Contractions on Admission: 6-10 Minutes Apart Last 72 hours Lab Results CBC & BMP 01/29/19 04:15 Liver Function Test 01/29/19 04:15 Alanine Aminotransferase (ALT/SGPT) 25 Albumin 3.3 Alkaline Phosphatase 82 Aspartate Amino Transf (AST/SGOT) 26 Direct Bilirubin 0.00 Total Protein 6.6 OB Assessment/Plan Reason for admission: section Plan: Section JACQUELIN BURROWS MD Jan 29, 2019 10:52
[2019-01-29] MEDS ORDERED: morphine SULFATE/PF (10 MG/10 ML) INJ ONE (10:55)
[2019-01-29] MEDS ORDERED: ONDANSETRON 4 MG INJ ONE (10:55)
[2019-01-29] MEDS ORDERED: OXYTOCIN 10 UNIT INJ ONE (10:55)
[2019-01-29] MEDS ORDERED: FENTAnyl 50 MCG/ML VIAL ONE (11:53)
[2019-01-29] MEDS ORDERED: METOCLOPRAMIDE 10 MG INJ ONE (11:54)
[2019-01-29] MEDS ORDERED: PHENYLephrine 10 MG INJ ONE (12:10)
--- NOTE | 2019-01-29 12:32 | OPR ---
Operative Report Planned Procedure Procedure date Jan 29, 2019 Procedure(s) Repeat low transverse Performed by Jacquelin Burrows MD Mechanical Repair Worker: JEWEL FRANCO MD Anesthesiologist: NORMA AMAYA MD Pre-procedure diagnosis Term with previous [id number] Anesthesia Type: [id number] spinal Post-Procedure Post-procedure diagnosis Same Findings Live Baby, Apgars 8 and 8 Estimated Blood Loss: other (600 ml) Specimen(s) Placenta Grafts/Implant(s) none Complication(s) none Pt Condition post procedure: stable Disposition: PACU Procedure Description After spinal anesthesia had been dosed and tested, the patient was placed supine on the Operating Room table and prepped and draped in the usual sterile fashion for a section. A Pfannenstiel incision was made through the abdomen and carried down to the level of the fascia. The fascia was incised transversely and then the rectus muscle was dissected off the fascia and split bluntly in the midline. The peritoneum was the entered bluntly. The bladder flap was created and then a low segment transverse incision was made with a knife on the uterus until the amniotic fluid was encountered. The incision was widened with bandage scissors. A hand was inserted elevating the vertex and then the head delivered with assistance of fundal pressure.. The nares and oropharynx were bulb suctioned, and the remainder of the was delivered out of the maternal abdomen. . The cord was doubly clamped and cut, and the infant handed off to the awaiting resuscitation team who was present for delivery. The placenta was then manually extracted and the interior uterus was cleaned wit h a dry lap sponge. The uterus was exteriorized, and the incision of the uterus closed with a running interlocking stitch of Monocryl suture. The uterus was replaced in the maternal abdomen. The abdomen was cleared of clots. The peritoneum was closed with 2-0 Vicryl. The fascia was closed with a running suture of #1 Vicryl suture meeting in the midline. The subcutaneous tissue was made hemostatic with Bovie cautery. The subcutaneous was reapproximated with 2-0 plain. The skin approximated using lyubov. The patient tolerated the procedure well. All sponge and instrument counts were correct. She was taken to the recovery room in stable condition. JACQUELIN BURROWS MD Jan 29, 2019 12:32
--- NOTE | 2019-01-29 12:37 | PAC ---
Date/Time of Note Date/Time of Note DATE: 01/29/19 TIME: 12:36 Post-Anesthesia Notes Post-Anesthesia Note Last documented vital signs Vital Signs Date Temp Pulse Resp B/P (MAP) Pulse Ox O2 O2 Flow FiO2 Time Delivery Rate 01/29/19 98.7 85 18 127/85 Room Air 02:52 (99) Activity: WNL Respiratory function: WNL Cardiovascular function: WNL Mental status: Baseline Pain reasonably controlled: Yes Hydration appropriate: Yes Nausea/Vomiting absent: Yes Comments BP:112/56, P:78, Spo2:100%, T:98,8 NORMA AMAYA MD Jan 29, 2019 12:37
[2019-01-29] MEDS ORDERED: DIPHENHYDRAMINE 50 MG INJ IV PRN (13:00)
[2019-01-29] MEDS ORDERED: ONDANSETRON 4 MG INJ IV PRN (13:00)
[2019-01-29] MEDS ORDERED: NALOXONE (0.4 MG/ML) INJ IV PRN (13:00)
[2019-01-29] MEDS ORDERED: morphine 2 MG INJ IV PRN (13:00)
[2019-01-29 15:15] VITALS: BP 120/78; PULSE 65; RESP 18
[2019-01-29] MEDS ORDERED: LACTATED RINGER'S 1,000 ML IV SCH (16:34)
[2019-01-29] MEDS ORDERED: OXYCODONE/ACETAMINOPHEN (5/325) TAB PO PRN (17:00)
[2019-01-29] MEDS ORDERED: LANOLIN HPA 1 PKT TOP PRN (17:00)
[2019-01-29 19:30] VITALS: BP 118/74; PULSE 73; RESP 18
[2019-01-29] MEDS: KETOROLAC 30 MG INJ IV PRN (20:27)
[2019-01-29] MEDS: SENNA/DOCUSATE NA (8.6MG/50MG) TAB PO SCH (21:00)
[2019-01-29 23:27] VITALS: BP 114/71; PULSE 70; RESP 18
[2019-01-30 03:38] VITALS: BP 109/58; PULSE 68; RESP 18
[2019-01-30 08:00] VITALS: BP 119/66; PULSE 73; RESP 16
[2019-01-30] MEDS: SENNA/DOCUSATE NA (8.6MG/50MG) TAB PO SCH ×2 (09:07→21:08)
[2019-01-30] MEDS: KETOROLAC 30 MG INJ IV PRN (10:41)
--- NOTE | 2019-01-30 13:11 | QN ---
Documentation Comment No complaint Afebrile VSS Abdomen soft POD #1 Stable Ambulate Advance diet. JACQUELIN BURROWS MD Jan 30, 2019 13:11
[2019-01-30] MEDS: IBUPROFEN 800 MG TAB PO SCH ×2 (14:33→22:13)
[2019-01-30 15:50] VITALS: BP 116/63; PULSE 80; RESP 18
[2019-01-30 20:10] VITALS: BP 114/77; PULSE 82; RESP 20
[2019-01-31 03:35] VITALS: BP 123/77; PULSE 76; RESP 19
[2019-01-31] MEDS: IBUPROFEN 800 MG TAB PO SCH ×3 (05:33→21:44)
[2019-01-31 08:15] VITALS: BP 121/63; PULSE 75; RESP 17
[2019-01-31] MEDS: SENNA/DOCUSATE NA (8.6MG/50MG) TAB PO SCH ×2 (09:06→21:44)
[2019-01-31 15:11] VITALS: BP 135/82; PULSE 82; RESP 17
--- NOTE | 2019-01-31 16:40 | DS ---
Date/Time of Note Date/Time of Note DATE: 01/31/19 TIME: 16:38 Obstetrical Discharge Record Final Diagnosis Final Diagnosis: Term delivered Section Section: Repeat Condition on Discharge Physical Assessment Voiding: Yes Bowel Movement: Yes Breast: Soft, non-tender, Filling Fundus: Firm Abdomen and Incision: Incision intact Calf Tenderness: No Patient Condition: Stable JACQUELIN BURROWS MD Jan 31, 2019 16:40
[2019-01-31] MEDS: OXYCODONE/ACETAMINOPHEN (5/325) TAB PO PRN (17:08)
[2019-01-31 20:00] VITALS: BP 123/84; PULSE 78; RESP 19
[2019-02-01 03:25] VITALS: BP 129/68; PULSE 84; RESP 19
[2019-02-01] MEDS: IBUPROFEN 800 MG TAB PO SCH ×2 (05:35→14:00)
[2019-02-01 08:30] VITALS: BP 121/78; PULSE 81; RESP 16
[2019-02-01] MEDS ORDERED: DIPHTH/TET/ACEL PERTUSS (ADULT) 0.5 ML VIAL IM* ONE (09:00)
[2019-02-01] MEDS: SENNA/DOCUSATE NA (8.6MG/50MG) TAB PO SCH (09:23)
[2019-02-01] MEDS: OXYCODONE/ACETAMINOPHEN (5/325) TAB PO PRN (12:57)
--- NOTE | 2019-02-02 15:48 | DELSUM ---
Delivery Summary A-C Datetime Report Generated by CPN: 02/02/2019 15:48 DELIVERY PERSONNEL [employer]: Contreras, [place] MATERNAL INFORMATION Delivery Anesthesia: Spinal Medications in Delivery: see anesthesia records Delivery QBL (ml): 600 Placenta Cultured: No Maternal Complications: None LABOR SUMMARY EDC: 02/05/2019 00:00 No. Babies in Womb: 1 Attempted: No Labor Anesthesia: None LABOR INFORMATION Reason for Induction: Not Applicable Group B Beta Strep: Negative Antibiotics # of Doses: 2 Antibiotics Time of Last Dose: 01/29/2019 11:05 Steroids Given: None Reason Steroids Not Administered: Not Applicable MEMBRANES Membranes Rupture Method: Artificial Rupture of Membranes: 01/29/2019 11:34 Length of Rupture (hr): 0.02 Amniotic Fluid Color: Clear Amniotic Fluid Amount: Small Amniotic Fluid Odor: Normal STAGES OF LABOR Stage 3 hr: 0 Stage 3 min: 1 CSECTION DELIVERY Primary Indication: Repeat Elective CSection Urgency: Elective CSection Incidence: Repeat Labor: Labor Elective: Elective CSection Incision: Lower Uterine Transverse BABY A INFORMATION Delivery Date/Time: 01/29/2019 11:35 Method of Delivery: Born in Route : No : N/A Forceps: N/A Vacuum Extraction: N/A Shoulder Dystocia : N/A SHOULDER DYSTOCIA BABY A Infant Delivery Date/Time: 01/29/2019 11:35 PRESENTATION/POSITION BABY A Presentation: Cephalic Cephalic Presentation: Vertex Vertex Position: Left Occipital Anterior Breech Presentation: N/A PLACENTA INFORMATION BABY A Placenta Delivery Time : 01/29/2019 11:36 Placenta Method of Delivery: Manual Removal Placenta Status: Delivered SCORES BABY A Heart Rate 1 min: >100 bpm Resp Effort 1 min: Good Cry Reflex Irritability 1 min: Cough/Sneeze/Pulls Away Muscle Tone 1 min: Active Motion Color 1 min: Blue/Pale Resuscitation Effort 1 min: Tactile Stimulation SCORE 1 MIN: 8 Heart Rate 5 min: >100 bpm Resp Effort 5 min: Good Cry Reflex Irritability 5 min: Cough/Sneeze/Pulls Away Muscle Tone 5 min: Active Motion Color 5 min: Blue/Pale Resuscitation Effort 5 min: Tactile Stimulation; Oxygen SCORE 5 MIN: 8 Heart Rate 10 min: >100 bpm Resp Effort 10 min: Good Cry Reflex Irritability 10 min: Cough/Sneeze/Pulls Away Muscle Tone 10 min: Active Motion Color 10 min: Blue/Pale SCORE 10 MIN: 8 INFANT INFORMATION BABY A Gestational Age at Delivery: 39.0 Gestational Status: Full Term- 39- 40.6 Weeks Infant Outcome : Liveborn, with signs of life Infant Condition : Stable Sex: Female IDENTIFICATION/MEDS BABY A ID Band Number: [id number] ID Band Location: Right Leg; Left Arm Sensor Applied: Yes Sensor Number: [id number] Sensor Location : Cord Clamp Vitamin K Given : Not Given Erythromycin Given: Not Given WEIGHT/LENGTH BABY A Infant Birthweight (gm): 3960 Infant Weight (lb): 8 Weight (oz): 12 Length (in): 20.00 Infant Length (cm): 50.80 CORD INFORMATION BABY A No. Cord Vessels: 3 Nuchal Cord : N/A Cord Blood Taken: Yes Infant Suction: Mouth; Nose ASSESSMENT BABY A Infant Complications: None Physical Findings at Delivery: Within Normal Limits Respirations: Appears Normal Assistant Women'S Tennis Coach/ALS Called : No Infant Care By: /uriah Transferred To: Remains with Mother
== END 2019-02-01 15:45 | disposition home or self-care (01) | DRG 788 ==
LOC: OBT 02:30 → L-D 02:30 → OBT 03:25 → L-D 10:51 → PP1 15:12
PROVIDERS: ADMIT Obstetrics & Gynecology; ATTEND Obstetrics & Gynecology
PROC: 10D00Z1 Extraction of Products of Conception, Low, Open Approach (ICD-10-PCS; principal; 2019-01-29 11:30)
DX: O34.211 Maternal care for low transverse scar from previous cesarean delivery (principal); Z3A.39 39 weeks gestation of pregnancy; Z37.0 Single live birth
CPT/HCPCS: 80053; 81003; 84560; 85025; 85610; 85730; 86592; 86850; 86885; 86900; 86901; 87340; 99464; G0463; J0690; J1200; J1885; J2274; J2370; J2405; J2590; J2765; J2790; J3010; J7120